=== PATIENT | female | born 1980 | race African-American/Black ===

== ENCOUNTER 2019-07-09 17:11 | Emergency (ER) | payer OTHER ==
[2019-07-09] MEDS ORDERED: Lidocaine 4% Cream 5 GM TUBE w/ Tegaderm ONE (18:26)
[2019-07-09] MEDS ORDERED: Lidocaine 1% (PF) 30 ML VIAL ONE (18:27)
== END 2019-07-09 20:03 | disposition home or self-care (01) ==
LOC: ERS 17:11
DX: L02.411 Cutaneous abscess of right axilla (principal)
CPT/HCPCS: 10060; J2001